=== PATIENT | female | born 2000 | race Hispanic/Latino ===

== ENCOUNTER 2022-02-11 23:06 | Emergency (ER) | payer MEDICAID, OTHER ==
[~2022-02-11] VITALS: Ht 162.6 cm; Wt 47.6 kg
[2022-02-11] MEDS ORDERED: ONDANSETRON 4MG INJ IVP ONE (23:30)
[2022-02-11] MEDS ORDERED: 0.9%NACL 1000ML 1,000 ML IV ONE (23:30)
[2022-02-11 23:56] LABS: BASOPHILS % (AUTO) 0.2 % (0.0-5.0); EOSINOPHILS % (AUTO) 0.2 % (0.0-8.0); HEMATOCRIT 35.1 % (36-48); LYMPHOCYTES % (AUTO) 19.5 % (21.0-51.0); MEAN CORPUSCULAR HEMOGLOBIN 28.9 pg (27.0-33.0); MEAN CORPUSCULAR HGB CONC 34.5 g/dL (32.0-36.0); MONOCYTES % (AUTO) 5.7 % (3.0-13.0); PLATELET COUNT (AUTO) 229 K/uL (130-400); RED BLOOD CELL COUNT(AUTO) 4.18 MIL/uL (4.00-5.50); RED CELL DISTRIBUTION WIDTH 13.4 % (11.0-15.5); WHITE BLOOD COUNT (AUTO) 8.5 K/uL (4.8-10.8)
[2022-02-12] MEDS ORDERED: PROCHLORPERAZINE 10MG/2ML INJ IV ONE
[2022-02-12 00:05] LABS: CREATININE 0.5 mg/dL (0.5-1.5); POTASSIUM 5.7 mmol/L (3.5-5.1)
[2022-02-12 00:10] LABS: ALBUMIN 3.8 g/dL (3.5-5.0); TOTAL PROTEIN, SERUM 7.8 g/dL (6.0-8.3)
[2022-02-12 01:17] VITALS: BP 114/63
[2022-02-12] MEDS ORDERED: ONDA22I IM (01:49)
== END 2022-02-12 01:54 | disposition home or self-care (01) ==
LOC: EDH 23:06
DX: O21.0 Mild hyperemesis gravidarum (principal); Z3A.01 Less than 8 weeks gestation of pregnancy
CPT/HCPCS: 99284; 96374; 96361; 96375; 80053; 85025; 36415; J7030; J0780; J2405

== ENCOUNTER → 2022-06-28 | Outpatient (CLI) | payer MEDICAID ==
[~2022-06-28] MED LIST: ONDA22I IM
== END | disposition home or self-care (01) ==
LOC: RAH 13:20
PROVIDERS: ATTEND Student in an Organized Health Care Education/Training Program
DX: O26.892 Other specified pregnancy related conditions, second trimester (principal); O99.412 Diseases of the circulatory system complicating pregnancy, second trimester; Q21.12 Patent foramen ovale; I05.9 Rheumatic mitral valve disease, unspecified; R01.1 Cardiac murmur, unspecified; Z3A.24 24 weeks gestation of pregnancy
CPT/HCPCS: 93306; 96374; A4216